=== PATIENT | male | born 1985 | race Caucasian/White ===

== ENCOUNTER 2020-12-27 08:28 | Emergency (ER) | payer OTHER ==
[2020-12-27 10:11] LABS: HEMOGLOBIN 15.6 gm/dl (14.0-17.5); RED BLOOD COUNT 5.25 M/UL (4.20-5.50); WHITE BLOOD COUNT 7.2 K/UL (4.5-11.0)
[2020-12-27 10:39] LABS: BUN/CREATININE RATIO 9 (0-10)
== END 2020-12-27 21:05 ==
LOC: ER1 08:28
PROVIDERS: Emergency Medicine
DX: R45.851 Suicidal ideations (principal); R07.9 Chest pain, unspecified; Z20.822 Contact with and (suspected) exposure to COVID-19
CPT/HCPCS: 71045; 80053; 82550; 82553; 83735; 83874; 84484; 85025; 93005; 99285; U0002